=== PATIENT | female | born 1955 | race Caucasian/White ===

== ENCOUNTER 2018-03-22 16:32 | Inpatient (IN) | payer MEDICARE, SELFPAY ==
[2018-03-22 16:33] VITALS: BP 135/90; PULSE 94; RESP 14; TEMP 36.7; O2SAT 96; BMI 16.9
--- NOTE | 2018-03-22 16:54 | CT_ITS ---
STUDY: CT ABDOMEN AND PELVIS WITH CONTRAST REASON FOR EXAM: Female, 62 years old. Vaginal bleeding. Pain. History of colostomy with colon surgery. RADIATION DOSAGE (If Supplied By Facility): CTDIvol = ( 8.29 ) mGy, DLP = ( 627.41 ) mGycm TECHNIQUE: Transaxial images were obtained from the dome of the diaphragm to the symphysis pubis without oral contrast. 100ml ml of Isovue 300 contrast was administered. Sagittal and coronal images were reconstructed. Individualized dose optimization techniques were used for this CT. COMPARISON: 07/07/2017 FINDINGS: The visualized lung bases are clear. The visualized portions of the heart and pericardium are within normal limits. There are no calcified gallstones present. There are stable cysts noted in the liver. The spleen is normal in size. The pancreas is within normal limits. The adrenal glands are within normal limits. There is moderate to severe bilateral hydroureteronephrosis. There are no focal renal lesions. Normal visualized stomach. There are stable postsurgical changes noted in the colon. There is no bowel obstruction or inflammation. There is a 12.2 x 8.9 x 8.7 cm thick-walled heterogeneous enhancing mass in the deep pelvis extending from the perineal region to the presacral space. This increased in size when compared with the prior exam (previously 2.1 x 1.9 cm). This likely represents necrotic neoplastic mass. Superinfection cannot be excluded. The aorta is normal in caliber. There is a small amount of free fluid. There is no free air. There are no destructive osseous lesions. CT/Abdomen/Pelvis WITH Contrast IMPRESSION: 12.2 x 8.9 x 8.7 cm heterogeneous enhancing mass in the deep pelvis which likely represents a necrotic neoplasm. Superinfection cannot be excluded and clinical correlation is recommended. Moderate to severe bilateral hydroureteronephrosis which is likely secondary to this mass. Small amount of ascites. No free air. N.B. : The above information has been verbally conveyed by Blue Chris to Dr Olivares, Referring Physician, on 03/22/2018 19:20:17 (ET). Electronically Signed: Blue Chris, at 19:20 EDT Tel , Service support , N.B. : The above information has been verbally conveyed by Blue Chris to Dr Olivares, Referring Physician, on 03/22/2018 19:20:17 (ET).
[2018-03-22 17:33] LABS: Absolute Lymphocyte Count 0.58 X10^3/ul (0.83-4.51); Absolute Neutrophil Count 4.4 X10^3/uL (2.0-7.7); Eosinophil# 0.02 X10^3/uL; Eosinophils% 0.4 % (0-5); Hematocrit 34.1 % (37-47); Hemoglobin 11.4 g/dl (12.0-15.0); Lymphocyte # 0.58 X10^3/ul (4.0); Lymphocyte % 10.9 % (19-41); Mean Corp Hgb Conc 33.4 g/gl (32-36); Mean Corpuscular Hgb 31.1 pg (27.0-32.0); Mean Corpuscular Volume 93.2 fL (81-99); Mean Platelet Vol. 8.3 fl (6.2-12.0); Monocyte# 0.35 X10^3/uL; Monocyte% 6.6 % (0-10); Neutrophil # 4.35 X10^3/uL (2.7-7.7); Neutrophil % 81.9 % (47-70); Platelet Count 303 K/mm3 (150-450); RBC Distribution Width CV 13.3 % (11.6-14.6); RBC Distribution Width SD 45.1 fl (35.1-43.9); Red Blood Count 3.66 M/mm3 (4.2-5.4); White Blood Count 5.3 K/mm3 (4.4-11.0)
[2018-03-22 17:35] LABS: Partial Thromboplast Time 29.6 Seconds (24.1-36.2)
[2018-03-22 17:45] LABS: ALB/GLOB Ratio 1.1 RATIO (0.9-2.4); AST(SGOT) 21 U/L (15-37); Alanine Aminotransfer ALT/SGPT 8 U/L (13-56); Albumin, Serum 3.1 g/dL (3.2-5.0); Alkaline Phosphatase 52 U/L (45-117); Anion Gap 4 (5-15); BUN 11 mg/dL (7-18); BUN/Creat Ratio 19.5 RATIO (10-20); Calcium,Total 8.7 mg/dL (8.5-10.1); Chloride 103 mmol/L (98-107); Creatinine, Serum 0.56 mg/dL (0.55-1.02); EST Glomerular Filtration Rate 116 mL/min (>60); Est Glom Filt Rate - Afr Amer 140 mL/min (>60); Estimated Creatinine Clearance 82.81 ml/min; Globulin 2.8 g/dL (2.2-4.2); Glucose 98 mg/dL (74-106); Potassium 4.1 mmol/L (3.5-5.1); Protein, Total 5.9 g/dL (6.4-8.2); Sodium Level 135 mmol/L (136-145)
[2018-03-22 18:08] LABS: Differential Indicated SCAN CRITERIA MET; POSITIVE COUNT NO; POSITIVE DIFFERENTIAL YES; POSITIVE MORPHOLOGY NO
[2018-03-22 18:09] LABS: Differential Comment SCANNED
[2018-03-22 18:12] LABS: International Normalized Ratio 1.1; Prothrombin Time (Protime)PT. 14.5 SECONDS (11.7-14.9)
[2018-03-22 19:50] VITALS: BP 118/76; PULSE 75; RESP 16; O2SAT 98
[2018-03-22 21:00] VITALS: BP 118/76; PULSE 75; RESP 16; O2SAT 98
--- NOTE | 2018-03-22 21:02 | PCM.HP.STD ---
Problem List (1) Rectal adenocarcinoma Status: Acute (2) Vaginal bleeding Status: Acute History of Present Illness Date of Admission: 03/22/18 Chief Complaint: active bleeding The patient is a 62 year old female patient with a past medical history of colorectal cancer diagnosed 1 year ago. She received treatment at that time and followed up with doctors from the [facility] 6months later. Today she presents with acute discomfort and bleeding from her vagina. CT scan reveals a large 12cm x 8 cm x 8 cm mass in her lower colon. She was to be transferred to the [facility] for definitive care but no beds are available at this time. We have been asked to admit the patient pending transfer when a bed becomes available. Current hemoglobin is within normal limits but she is soaking pads twice since arrival at about 100cc each time. Other manrique she she denies pain although she is unable to sit on her bottom. She wishes to be a full code. Past Medical History Allergies No Known Allergies Allergy (Verified 03/22/18 16:32) Home Medications: Ambulatory Orders Medication Instructions Recorded Carbidopa/Levodopa 25/100 [Sinemet] 1 tablet PO Q2H 03/02/17 Clonazepam [Klonopin] 0.5 mg PO DAILY PRN 07/23/17 Ferrous Sulfate [Iron] 325 mg PO BID 07/23/17 Magnesium Oxide [Magnesium] 500 mg PO DAILY 07/23/17 Hydrocodone/Acetaminophen [[place] 0.5 each PO QHS PRN 03/22/18 5-325 Tablet] Surgical History: no surgical history Smoking Status: Never smoker - *Family History Maternal History Items: No pertinent history Review of Systems Constitutional: Denies: Chills, Fever, Weight Change HEENT: Denies: Head Aches, Sinus Congestion, Sinus Drainage Cardiovascular: Denies: Chest Pain, Palpitations Respiratory: Denies: Cough, Shortness of breath at rest, Sputum production Gastrointestinal: Reports: Hematochezia. Denies: Abdominal Pain, Nausea, Vomiting Genitourinary: Reports: - - vaginal bleeding. Denies: Dysuria Musculoskeletal: Denies: Joint Pain, Joint Tenderness Skin: Denies: Rash, Wounds Neurological: Denies: Numbness, Tingling, Focal weakness Psychiatric: Reports: Anxiety. Denies: Depression, Homicidal Ideations, Suicidal Ideations Hematologic/ Lymphatic: Denies: Easy Bruising, Easy Bleeding VTE Information - Inpt Only VTE Present on Admission: No VTE Mechan Device Prophylaxis: None Reason prophylaxis not ordered:: Medical Contraindication - Physical Exam General: Alert, Oriented x3, Cooperative HEENT: Atraumatic, Normocephalic Neck: Supple Lungs: Clear to auscultation, Normal air movement Cardiovascular: Regular rate, Normal S1, Normal S2, No murmurs Abdomen: Bowel Sounds Present, Soft Extremities: No edema, Capillary Refill Less than 3 Seconds Skin: No rashes Musculoskeletal: No Tenderness to Palpation of Joints or Extremities Neurological: Neuro grossly intact Psych/Mental Status: Normal Affect, Appropriate Vital Signs Temp Pulse Resp BP Pulse Ox 98.1 F 75 16 118/76 98 03/22/18 16:33 03/22/18 19:50 03/22/18 19:50 03/22/18 19:50 03/22/18 19:50 Oxygen Delivery Method Room Air Weight: 108 lb 3.951 oz Body Mass Index (BMI) 16.9 Laboratory Tests Past 24 Hrs 03/22/18 03/22/18 03/22/18 17:00 17:00 17:00 WBC 5.3 RBC 3.66 L Hgb 11.4 L Hct 34.1 L MCV 93.2 MCH 31.1 MCHC 33.4 RDW 13.3 RDW Differential 45.1 H Plt Count 303 MPV 8.3 Immature Gran % (Auto) 0.200 Neut % (Auto) 81.9 H Lymph % (Auto) 10.9 L [place] % (Auto) 6.6 Eos % (Auto) 0.4 Baso % (Auto) 0.0 Absolute Neuts (auto) 4.4 Absolute Lymphs (auto) 0.58 L Total Counted Not Reportable Differential Comment SCANNED PT 14.5 INR 1.1 APTT 29.6 Sodium 135 L Potassium 4.1 Chloride 103 Carbon Dioxide 28.0 Anion Gap 4 L BUN 11 Creatinine 0.56 Estim Creat Clear Calc 82.81 Est GFR (MDRD) Af Amer 140 Est GFR (MDRD) Non-Af 116 BUN/Creatinine Ratio 19.5 Glucose 98 Calcium 8.7 Total Bilirubin 0.70 AST 21 ALT 8 L Alkaline Phosphatase 52 Total Protein 5.9 L Albumin 3.1 L Globulin 2.8 Albumin/Globulin Ratio 1.1 Assessment/Plan Assessment - colon cancer - large mass on CT scan - active bleeding PV Plan - admit to general medical floor pending transfer to the [facility] for definitive care - H+H q 6hrs with active bleeding - vicodin 5/325 one tab po q 4hrs prn pain - regular diet as tolerated - NO DVT prophylaxis due to active bleeding Code Visit Inpatient E&M: 54427 Init Hosp L3
--- NOTE | 2018-03-22 21:13 | HP.PCM_ITS ---
Problem List (1) Rectal adenocarcinoma Status: Acute (2) Vaginal bleeding Status: Acute History of Present Illness Date of Admission: 03/22/18 Chief Complaint: active bleeding The patient is a 62 year old female patient with a past medical history of colorectal cancer diagnosed 1 year ago. She received treatment at that time and followed up with doctors from the [facility] 6months later. Today she presents with acute discomfort and bleeding from her vagina. CT scan reveals a large 12cm x 8 cm x 8 cm mass in her lower colon. She was to be transferred to the [facility] for definitive care but no beds are available at this time. We have been asked to admit the patient pending transfer when a bed becomes available. Current hemoglobin is within normal limits but she is soaking pads twice since arrival at about 100cc each time. Other manrique she she denies pain although she is unable to sit on her bottom. She wishes to be a full code. Past Medical History Allergies No Known Allergies Allergy (Verified 03/22/18 16:32) Home Medications: Ambulatory Orders Medication Instructions Recorded Carbidopa/Levodopa 25/100 [Sinemet] 1 tablet PO Q2H 03/02/17 Clonazepam [Klonopin] 0.5 mg PO DAILY PRN 07/23/17 Ferrous Sulfate [Iron] 325 mg PO BID 07/23/17 Magnesium Oxide [Magnesium] 500 mg PO DAILY 07/23/17 Hydrocodone/Acetaminophen [[place] 0.5 each PO QHS PRN 03/22/18 5-325 Tablet] Surgical History: no surgical history Smoking Status: Never smoker - *Family History Maternal History Items: No pertinent history Review of Systems Constitutional: Denies: Chills, Fever, Weight Change HEENT: Denies: Head Aches, Sinus Congestion, Sinus Drainage Cardiovascular: Denies: Chest Pain, Palpitations Respiratory: Denies: Cough, Shortness of breath at rest, Sputum production Gastrointestinal: Reports: Hematochezia. Denies: Abdominal Pain, Nausea, Vomiting Genitourinary: Reports: - - vaginal bleeding. Denies: Dysuria Musculoskeletal: Denies: Joint Pain, Joint Tenderness Skin: Denies: Rash, Wounds Neurological: Denies: Numbness, Tingling, Focal weakness Psychiatric: Reports: Anxiety. Denies: Depression, Homicidal Ideations, Suicidal Ideations Hematologic/ Lymphatic: Denies: Easy Bruising, Easy Bleeding VTE Information - Inpt Only VTE Present on Admission: No VTE Mechan Device Prophylaxis: None Reason prophylaxis not ordered:: Medical Contraindication - Physical Exam General: Alert, Oriented x3, Cooperative HEENT: Atraumatic, Normocephalic Neck: Supple Lungs: Clear to auscultation, Normal air movement Cardiovascular: Regular rate, Normal S1, Normal S2, No murmurs Abdomen: Bowel Sounds Present, Soft Extremities: No edema, Capillary Refill Less than 3 Seconds Skin: No rashes Musculoskeletal: No Tenderness to Palpation of Joints or Extremities Neurological: Neuro grossly intact Psych/Mental Status: Normal Affect, Appropriate Vital Signs Temp Pulse Resp BP Pulse Ox 98.1 F 75 16 118/76 98 03/22/18 16:33 03/22/18 19:50 03/22/18 19:50 03/22/18 19:50 03/22/18 19:50 Oxygen Delivery Method Room Air Weight: 108 lb 3.951 oz Body Mass Index (BMI) 16.9 Laboratory Tests Past 24 Hrs 03/22/18 03/22/18 03/22/18 17:00 17:00 17:00 WBC 5.3 RBC 3.66 L Hgb 11.4 L Hct 34.1 L MCV 93.2 MCH 31.1 MCHC 33.4 RDW 13.3 RDW Differential 45.1 H Plt Count 303 MPV 8.3 Immature Gran % (Auto) 0.200 Neut % (Auto) 81.9 H Lymph % (Auto) 10.9 L [place] % (Auto) 6.6 Eos % (Auto) 0.4 Baso % (Auto) 0.0 Absolute Neuts (auto) 4.4 Absolute Lymphs (auto) 0.58 L Total Counted Not Reportable Differential Comment SCANNED PT 14.5 INR 1.1 APTT 29.6 Sodium 135 L Potassium 4.1 Chloride 103 Carbon Dioxide 28.0 Anion Gap 4 L BUN 11 Creatinine 0.56 Estim Creat Clear Calc 82.81 Est GFR (MDRD) Af Amer 140 Est GFR (MDRD) Non-Af 116 BUN/Creatinine Ratio 19.5 Glucose 98 Calcium 8.7 Total Bilirubin 0.70 AST 21 ALT 8 L Alkaline Phosphatase 52 Total Protein 5.9 L Albumin 3.1 L Globulin 2.8 Albumin/Globulin Ratio 1.1 Assessment/Plan Assessment - colon cancer - large mass on CT scan - active bleeding PV Plan - admit to general medical floor pending transfer to the [facility] for definitive care - H+H q 6hrs with active bleeding - vicodin 5/325 one tab po q 4hrs prn pain - regular diet as tolerated - NO DVT prophylaxis due to active bleeding Code Visit Inpatient E&M: 70761 Init Hosp L3
[2018-03-22 22:16] VITALS: PULSE 58; BMI 16.6
[2018-03-22 22:33] VITALS: BMI 16.6
[2018-03-22 23:16] LABS: Hematocrit 33.2 % (37-47); Hemoglobin 11.2 g/dl (12.0-15.0)
[2018-03-22] MEDS: Ferrous Sulfate 325 MG Tablet PO (23:36)
[2018-03-22] MEDS: Famotidine 20 MG Tablet PO (23:37)
[2018-03-22] MEDS: Carbidopa/Levodopa 25/100 Tablet PO (23:38)
[2018-03-22] MEDS: HYDROcodone Bitartrate/Apap 5/325 Tablet PO (23:44)
--- NOTE | 2018-03-23 00:15 | ED.VISSUMM ---
- ER Visit Summary Date of Service: 03/23/18 Chief Complaint: Vaginal bleeding History of Present Illness: The patient is a 62 F presenting for evaluation secondary to vaginal bleeding. Patient has an underlying history of colorectal and uterine cancer status post surgery approximately a year ago. Patient states that over the course of the last 2 weeks she has noticed that she has been having vaginal bleeding. Patient states that it is intermittent occasionally is spotting, and occasionally is heavy. She states that it is not been associated with any sort of pelvic pain, but she states over the last 2 months she has been having increasing pain near her rectum. She states that she cannot actually sit because she feels as if she is sitting on a post. Patient has a surgically absent anus, and has a colostomy bag. Physical Examination: Cachectic female lying on her side no acute distress vitals are stable. No conjunctival pallor. Moist mucous membranes. Neck supple. Heart regular rate and rhythm lungs clear abdomen soft nontender. and rectal exam shows no evidence of external bleeding. I was unable to perform a internal vaginal exam due to stenosis of the vaginal canal. Anus is found to be surgically absent. Remainder physical otherwise unremarkable. Test Results: CBC and chemistry unremarkable. CT abdomen and pelvis with p.o. and IV contrast shows a large necrotic pelvic mass measuring 12 cm x 8 cm x 8 cm causing bilateral hydronephrosis Emergency Department Course and Treatment: Patient presented with complaints of vaginal bleeding in the setting of recent cancer surgery within the last year so. Patient's workup ultimately shows concern for the possibility of reemergence of the patient's cancer. I discussed this with the on-call oncology at this facility, they recommended transfer to [facility] as that is where she had her prior surgery done. I discussed this with the transfer line at [facility], they agreed to accept patient in transfer. They did however state that they did not believe they would be able to get a bed for the patient, so the patient was admitted at this facility until a bed will become available. Disposition: Admission Impression: 1. Pelvic mass, likely recurrent colorectal cancer This note was generated with [employer] dictation software. It may contain incorrect words, spelling, and punctuation that were not noted in review of the chart prior to signing ED Disposition - Plan for ED Patient: Disposition: Acute Care Hospital [facility] Chief Complaint: Vag Bleeding
--- NOTE | 2018-03-23 00:19 | ED.DCSUM_ITS ---
- ER Visit Summary Date of Service: 03/23/18 Chief Complaint: Vaginal bleeding History of Present Illness: The patient is a 62 F presenting for evaluation secondary to vaginal bleeding. Patient has an underlying history of colorectal and uterine cancer status post surgery approximately a year ago. Patient states that over the course of the last 2 weeks she has noticed that she has been having vaginal bleeding. Patient states that it is intermittent occasionally is spotting, and occasionally is heavy. She states that it is not been associated with any sort of pelvic pain, but she states over the last 2 months she has been having increasing pain near her rectum. She states that she cannot actually sit because she feels as if she is sitting on a post. Patient has a surgically absent anus, and has a colostomy bag. Physical Examination: Cachectic female lying on her side no acute distress vitals are stable. No conjunctival pallor. Moist mucous membranes. Neck supple. Heart regular rate and rhythm lungs clear abdomen soft nontender. and rectal exam shows no evidence of external bleeding. I was unable to perform a internal vaginal exam due to stenosis of the vaginal canal. Anus is found to be surgically absent. Remainder physical otherwise unremarkable. Test Results: CBC and chemistry unremarkable. CT abdomen and pelvis with p.o. and IV contrast shows a large necrotic pelvic mass measuring 12 cm x 8 cm x 8 cm causing bilateral hydronephrosis Emergency Department Course and Treatment: Patient presented with complaints of vaginal bleeding in the setting of recent cancer surgery within the last year so. Patient's workup ultimately shows concern for the possibility of reemergence of the patient's cancer. I discussed this with the on-call oncology at this facility, they recommended transfer to [facility] as that is where she had her prior surgery done. I discussed this with the transfer line at [facility], they agreed to accept patient in transfer. They did however state that they did not believe they would be able to get a bed for the patient , so the patient was admitted at this facility until a bed will become available. Disposition: Admission Impression: 1. Pelvic mass, likely recurrent colorectal cancer This note was generated with [employer] dictation software. It may contain incorrect words, spelling, and punctuation that were not noted in review of the chart prior to signing ED Disposition - Plan for ED Patient: Disposition: Acute Care Hospital [facility] Chief Complaint: Vag Bleeding
[2018-03-23 01:15] VITALS: BP 119/79; PULSE 73; RESP 16; TEMP 36.9; O2SAT 100
--- NOTE | 2018-03-23 01:32 | NURSING ---
DISCHARGE VITALS TAKEN, WNL; ASSISTED EMT W/TRANSFER TO STRETCHER; BELONGINGS GIVEN TO PATIENT.
== END 2018-03-23 01:25 | disposition short-term general hospital (02) | DRG 376 ==
LOC: ED 17:29 → MS3 21:20
PROVIDERS: Admitting Provider Family Medicine; Emergency Provider Emergency Medicine; Visit Provider Family Medicine
DX: C19 Malignant neoplasm of rectosigmoid junction (principal); N93.8 Other specified abnormal uterine and vaginal bleeding; G20 Parkinson's disease; Z90.49 Acquired absence of other specified parts of digestive tract; Z93.3 Colostomy status; Z85.42 Personal history of malignant neoplasm of other parts of uterus; Z79.899 Other long term (current) drug therapy
CPT/HCPCS: 36415; 74177; 80053; 85014; 85018; 85025; 85610; 85730; 99285; Q9967